=== PATIENT | female | born 2000 | race African-American/Black ===

== ENCOUNTER 2022-02-18 12:35 | Inpatient (IN) | payer OTHER ==
[2022-02-18] MEDS ORDERED: METOCLOPRAMIDE HCL INJECTION 10 MG/2 ML VIAL IVPUSH ONE (12:54)
[2022-02-18] MEDS ORDERED: SODIUM CHLORIDE 0.9% 500 ML INFUS.BAG IV ONE (13:07)
[2022-02-18] MEDS ORDERED: THIAMINE HCL 200 MG/2 ML VIAL IVPB ONE ×2 (13:09→13:49)
[2022-02-18] MEDS ORDERED: MULTIVIT INJ. ADULT COMBO WITH VIT K 1 COMBO 10 ML VIAL IV ONE (13:10)
[2022-02-18] MEDS ORDERED: THIAMINE HCL 100 MG TABLET (FP) PO ONE (13:10)
[2022-02-18] MEDS ORDERED: FOLIC ACID 5 MG/1 ML IVPB ONE (13:51)
[2022-02-18] MEDS ORDERED: METOCLOPRAMIDE HCL INJECTION 10 MG/2 ML VIAL ONE (13:55)
[2022-02-18 14:03] LABS: BASO % 1.1 % (0-2.0); EOS % 1.1 % (0-4.5); HEMATOCRIT 44.3 % (32.4-45.2); HEMOGLOBIN 14.9 GM/dL (10.7-15.3); LYMPH % 55.9 % (8-40); MCH 28.2 pg (25.7-33.7); MCHC 33.6 g/dl (32.0-36.0); MEAN PLT VOLUME 8.4 fl (7.5-11.1); MONO % 10.3 % (3.8-10.2); NEUT % 31.6 % (42.8-82.8); PLATELET COUNT 456 10^3/uL (134-434); RBC 5.28 M/mm3 (3.60-5.2); RDW 13.2 % (11.6-15.6); WHITE BLOOD COUNT 4.9 K/mm3 (4.0-10.0)
[2022-02-18 14:06] LABS: EPI CELLS >36 /uL (0-25.1); HYALINE CASTS 22 /uL (0-3.1); PH,URINE 5.5 (5.0-8.0); URINE APPEARANCE CLOUDY; URINE BACTERIA >9,000 /uL (0-1359); URINE BILIRUBIN NEGATIVE (NEGATIVE); URINE COLOR DK YELLOW; URINE GLUCOSE (UA) NEGATIVE (NEGATIVE); URINE KETONE 2+ (NEGATIVE); URINE LEUK ESTERASE 1+ (NEGATIVE); URINE NITRITE NEGATIVE (NEGATIVE); URINE PROTEIN 2+ (NEGATIVE); URINE RBC 15 /uL (0-23.9); URINE WBC 384 /uL (0-25.8)
[2022-02-18 14:21] LABS: COCAINE, UR NEGATIVE (NEGATIVE); OPIATES, URI NEGATIVE (NEGATIVE); URINE AMPHETAMINES NEGATIVE (NEGATIVE); URINE BARBITURATES NEGATIVE (NEGATIVE)
[2022-02-18 14:22] LABS: ALBUMIN 4.6 g/dl (3.4-5.0); CALCIUM 10.5 mg/dL (8.5-10.1)
[2022-02-18 14:23] LABS: MAGNESIUM 2.1 mg/dL (1.8-2.4)
[2022-02-18 14:24] LABS: METHADONE, UR NEGATIVE (NEGATIVE); PHENCYCLIDINE,URINE NEGATIVE (NEGATIVE); URINE BENZODIAZEPINES NEGATIVE (NEGATIVE)
[2022-02-18 14:25] LABS: PHOSPHOROUS 3.3 mg/dL (2.5-4.9)
[2022-02-18 14:27] LABS: BILIRUBIN,TOTAL 0.6 mg/dL (0.2-1); TOT PROT 8.6 g/dl (6.4-8.2)
[2022-02-18] MEDS ORDERED: THIAMINE HCL 200 MG/2 ML VIAL ONE (14:44)
[2022-02-18] MEDS ORDERED: CEFTRIAXONE 1,000 MG in DEXTROSE 5%-WATER - 50 ML IVPB ONE (14:49)
[2022-02-18] MEDS ORDERED: CEFTRIAXONE 1 GM/50 ML BAG ONE (16:17)
[2022-02-18] MEDS ORDERED: ONDANSETRON 4 MG/2 ML VIAL IVPUSH PRN (17:10)
[2022-02-18] MEDS: DEXTROSE 5%-0.45% SALINE 1,000 ML IV SCH (18:10)
[2022-02-18] MEDS ORDERED: CIPROFLOXACIN 250 MG TABLET (RESTRICTED TO ID) PO SCH (22:00)
[2022-02-19] MEDS: ENOXAPARIN NA (PORCINE) 30 MG/0.3 ML DISP.SYRIN SQ SCH (09:37)
[2022-02-19] MEDS ORDERED: ONDANSETRON 4 MG/2 ML VIAL IVPUSH PRN (09:46)
[2022-02-19 10:35] LABS: BASO % 0.7 % (0-2.0); EOS % 1.7 % (0-4.5); HEMATOCRIT 37.5 % (32.4-45.2); HEMOGLOBIN 12.6 GM/dL (10.7-15.3); LYMPH % 42.5 % (8-40); MCH 27.9 pg (25.7-33.7); MCHC 33.6 g/dl (32.0-36.0); MEAN CELL VOLUME 82.9 fl (80-96); MEAN PLT VOLUME 8.5 fl (7.5-11.1); MONO % 6.5 % (3.8-10.2); NEUT % 48.6 % (42.8-82.8); PLATELET COUNT 354 10^3/uL (134-434); RBC 4.53 M/mm3 (3.60-5.2); RDW 13.2 % (11.6-15.6); WHITE BLOOD COUNT 3.1 K/mm3 (4.0-10.0)
[2022-02-19 10:59] LABS: BLOOD UREA NITROGEN 3.8 mg/dL (7-18); MAGNESIUM 1.6 mg/dL (1.8-2.4)
[2022-02-19 11:02] LABS: BILIRUBIN,DIRECT 0.1 mg/dL (0.0-0.2); CREATININE 0.7 mg/dL (0.55-1.3)
[2022-02-19 11:03] LABS: BILIRUBIN,TOTAL 0.5 mg/dL (0.2-1)
[2022-02-19 11:04] LABS: TOT PROT 6.9 g/dl (6.4-8.2)
[2022-02-19 11:09] LABS: ALBUMIN 3.6 g/dl (3.4-5.0); CALCIUM 8.9 mg/dL (8.5-10.1)
[2022-02-19] MEDS ORDERED: MAGNESIUM OXIDE 400 MG TABLET (FP) PO ONE (16:41)
[2022-02-19] MEDS ORDERED: POTASSIUM CHLORIDE TABS 20 MEQ TABLET.ER (FP) PO ONE (16:41)
[2022-02-19] MEDS: DEXTROSE 5%-0.45% SALINE 1,000 ML IV SCH (17:26)
[2022-02-19] MEDS: AMINO ACIDS/PROTEIN HYDROLYS 30 ML LIQUID.PKT PO SCH (17:26)
[2022-02-19] MEDS: THIAMINE HCL 100 MG TABLET (FP) PO SCH (21:18)
[2022-02-19] MEDS ORDERED: CIPROFLOXACIN 250 MG TABLET (RESTRICTED TO ID) PO SCH (22:00)
[2022-02-20] MEDS: DEXTROSE 5%-0.45% SALINE 1,000 ML IV SCH (06:26)
[2022-02-20 07:48] LABS: EOS % 3.2 % (0-4.5); HEMATOCRIT 36.2 % (32.4-45.2); HEMOGLOBIN 12.2 GM/dL (10.7-15.3); LYMPH % 57.4 % (8-40); MCH 27.6 pg (25.7-33.7); MCHC 33.6 g/dl (32.0-36.0); MEAN CELL VOLUME 82.3 fl (80-96); MEAN PLT VOLUME 8.2 fl (7.5-11.1); MONO % 9.6 % (3.8-10.2); NEUT % 28.8 % (42.8-82.8); PLATELET COUNT 332 10^3/uL (134-434); RDW 13.2 % (11.6-15.6); WHITE BLOOD COUNT 3.6 K/mm3 (4.0-10.0)
[2022-02-20 08:13] LABS: CALCIUM 9.1 mg/dL (8.5-10.1)
[2022-02-20 08:14] LABS: ALBUMIN 3.5 g/dl (3.4-5.0); BLOOD UREA NITROGEN 3.4 mg/dL (7-18)
[2022-02-20 08:30] LABS: BILIRUBIN,TOTAL 0.5 mg/dL (0.2-1); CREATININE 0.8 mg/dL (0.55-1.3); TOT PROT 6.4 g/dl (6.4-8.2)
[2022-02-20 10:10] LABS: PHOSPHOROUS 4.4 mg/dL (2.5-4.9)
[2022-02-20] MEDS: MULTIVITAMINS (DAILY MVI) TABLET (FP) PO SCH (11:03)
[2022-02-20] MEDS: CEFTRIAXONE 1 GM in DEXTROSE 5%-WATER - 50 ML IVPB SCH (11:03)
[2022-02-20] MEDS: AMINO ACIDS/PROTEIN HYDROLYS 30 ML LIQUID.PKT PO SCH ×2 (11:03→18:22)
[2022-02-20] MEDS: FOLIC ACID 1 MG TABLET (FP) PO SCH (11:03)
[2022-02-20] MEDS: ENOXAPARIN NA (PORCINE) 30 MG/0.3 ML DISP.SYRIN SQ SCH (11:04)
[2022-02-20] MEDS: AMINO ACIDS 4.25%/D5W 1,000 ML IV SCH ×2 (11:04→22:42)
[2022-02-20 13:08] VITALS: BMI 15.3
[2022-02-20] MEDS: THIAMINE HCL 100 MG TABLET (FP) PO SCH (22:42)
[2022-02-21] MEDS: AMINO ACIDS 4.25%/D5W 1,000 ML IV SCH ×2 (03:53→16:20)
[2022-02-21 08:40] LABS: HEMATOCRIT 34.9 % (32.4-45.2); MCH 28.3 pg (25.7-33.7); MCHC 34.4 g/dl (32.0-36.0); MEAN CELL VOLUME 82.3 fl (80-96); MEAN PLT VOLUME 8.4 fl (7.5-11.1); PLATELET COUNT 288 10^3/uL (134-434); RBC 4.24 M/mm3 (3.60-5.2); RDW 12.9 % (11.6-15.6); WHITE BLOOD COUNT 3.3 K/mm3 (4.0-10.0)
[2022-02-21 09:01] LABS: CALCIUM 8.8 mg/dL (8.5-10.1)
[2022-02-21 09:02] LABS: ALBUMIN 3.2 g/dl (3.4-5.0); BLOOD UREA NITROGEN 12.3 mg/dL (7-18)
[2022-02-21 09:03] LABS: CREATININE 0.6 mg/dL (0.55-1.3)
[2022-02-21 09:05] LABS: BILIRUBIN,TOTAL 0.3 mg/dL (0.2-1)
[2022-02-21] MEDS: ENOXAPARIN NA (PORCINE) 30 MG/0.3 ML DISP.SYRIN SQ SCH (09:30)
[2022-02-21] MEDS: CEFTRIAXONE 1 GM in DEXTROSE 5%-WATER - 50 ML IVPB SCH (09:30)
[2022-02-21] MEDS: MULTIVITAMINS (DAILY MVI) TABLET (FP) PO SCH (09:31)
[2022-02-21] MEDS: AMINO ACIDS/PROTEIN HYDROLYS 30 ML LIQUID.PKT PO SCH (09:31)
[2022-02-21] MEDS: FOLIC ACID 1 MG TABLET (FP) PO SCH (09:31)
[2022-02-21 10:27] LABS: ANISOCYTOSIS 0; HELMET CELLS 0; HOWELL-JOLLY BODIES 0; MACROCYTOSIS 0; OVALOCYTE 0; ROULEAU 0; SICKELED CELLS 0; TARGET CELLS 0; TEAR DROP CELLS 0; TOXIC GRANULATION 0
[2022-02-21 19:37] VITALS: BP 115/76; PULSE 84; RESP 18; TEMP 98.1
[2022-02-21] MEDS ORDERED: CEFUROXIME AXETIL 250 MG TABLET PO SCH (22:00)
== END 2022-02-21 18:22 | disposition home or self-care (01) | DRG 394 ==
LOC: JER 12:35 → JERBED 14:51 → J7W 22:37
PROVIDERS: ADMIT Internal Medicine; ATTEND Nurse Practitioner Family
DX: K55.1 Chronic vascular disorders of intestine (principal); E46 Unspecified protein-calorie malnutrition; R64 Cachexia; Z68.1 Body mass index [BMI] 19.9 or less, adult; E86.0 Dehydration; F12.10 Cannabis abuse, uncomplicated; D72.819 Decreased white blood cell count, unspecified; R11.2 Nausea with vomiting, unspecified
CPT/HCPCS: 36415; 74174-TC; 74177-TC; 80048; 80053; 80076; 80307; 81003; 82607; 83036; 83690; 83735; 84100; 84443; 84703; 85025; 86705; 86708; 86803; 87086; 87340; 87517; 93005; 93010; 99285-25; C9803-CS; Q9967; U0003; U0005

== ENCOUNTER 2023-08-04 16:12 | Emergency (ER) | payer OTHER ==
[2023-08-04 16:25] VITALS: BP 134/99; PULSE 97; RESP 18; TEMP 98.7; BMI 21.0
[2023-08-04 17:37] LABS: HCG,QUALITATIVE URINE Negative
[2023-08-04 17:39] LABS: EPI CELLS >36 /uL (0-25.1); HYALINE CASTS 6 /uL (0-3.1); PH,URINE 6.5 (5.0-8.0); URINE APPEARANCE CLOUDY; URINE BACTERIA 1512 /uL (0-1359); URINE BILIRUBIN NEGATIVE (NEGATIVE); URINE COLOR YELLOW; URINE GLUCOSE (UA) NEGATIVE (NEGATIVE); URINE KETONE 3+ (NEGATIVE); URINE LEUK ESTERASE TRACE (NEGATIVE); URINE NITRITE NEGATIVE (NEGATIVE); URINE PROTEIN TRACE (NEGATIVE); URINE WBC 45 /uL (0-25.8)
[2023-08-04] MEDS ORDERED: HALOPERIDOL LACTATE 5 MG/ML IM ONE (17:41)
[2023-08-04] MEDS ORDERED: HALOPERIDOL LACTATE 5 MG/ML ONE (17:44)
[2023-08-04 20:52] LABS: URINE RBC 52.5 /uL (0-23.9)
== END 2023-08-04 19:02 | disposition home or self-care (01) ==
LOC: JER 16:12
PROC: 3E023GC Introduction of Other Therapeutic Substance into Muscle, Percutaneous Approach (ICD-10-PCS; principal; 2023-08-04)
DX: R11.2 Nausea with vomiting, unspecified (principal)
CPT/HCPCS: 81003; 84703; 99284-25

== ENCOUNTER 2023-08-05 18:05 | Observation (INO) | payer OTHER ==
[2023-08-05] MEDS ORDERED: SODIUM CHLORIDE 0.9% 500 ML INFUS.BAG IV ONE ×2 (19:13→20:38)
[2023-08-05] MEDS ORDERED: ONDANSETRON 4 MG/2 ML VIAL IVPUSH ONE (19:13)
[2023-08-05] MEDS ORDERED: LACTATED RINGERS SOLUTION 1,000 ML/1,000 ML INFUS.BAG IV STA (19:16)
[2023-08-05] MEDS ORDERED: ONDANSETRON 4 MG/2 ML VIAL ONE (19:41)
[2023-08-05] MEDS ORDERED: LORazepam 2 MG/ML SDV VIAL IVPUSH ONE (20:01)
[2023-08-05 20:17] LABS: BASO % 0.9 % (0-2.0); EOS % 0.2 % (0-4.5); HEMATOCRIT 42.7 % (32.4-45.2); HEMOGLOBIN 13.9 GM/dL (10.7-15.3); LYMPH % 34.6 % (8-40); MCHC 32.7 g/dl (32.0-36.0); MEAN CELL VOLUME 82.8 fl (80-96); MEAN PLT VOLUME 8.1 fl (7.5-11.1); MONO % 7.2 % (3.8-10.2); NEUT % 57.1 % (42.8-82.8); PLATELET COUNT 631 10^3/uL (134-434); RBC 5.16 M/mm3 (3.60-5.2); RDW 14.1 % (11.6-15.6); WHITE BLOOD COUNT 7.8 K/mm3 (4.0-10.0)
[2023-08-05 20:47] LABS: POTASSIUM 3.7 mmol/L (3.5-5.1)
[2023-08-05 20:49] LABS: ALBUMIN 4.6 g/dl (3.4-5.0); CALCIUM 10.3 mg/dL (8.5-10.1); MAGNESIUM 2.2 mg/dL (1.8-2.4)
[2023-08-05 20:52] LABS: PHOSPHOROUS 2.3 mg/dL (2.5-4.9)
[2023-08-05 20:54] LABS: BILIRUBIN,TOTAL 0.5 mg/dL (0.2-1); TOT PROT 8.7 g/dl (6.4-8.2)
[2023-08-05 21:20] LABS: VENOUS BASE EXCESS 0.2 mmol/L (-2-2); VENOUS O2 SATURATION 67.6 % (70-80); VENOUS PCO2 45.4 mmHg (38-52); VENOUS PH 7.373 (7.310-7.410)
[2023-08-05 21:25] LABS: INR 1.22 (0.83-1.09); PROTHROMBIN TIME (PATIENT) 14.1 SEC (9.7-13.0)
[2023-08-05 21:28] LABS: ACTIVATED PTT 26.1 SECONDS (25.2-36.5)
[2023-08-05] MEDS ORDERED: LACTATED RINGERS SOLUTION 1000 ML INFUS.BAG IV ONE (23:18)
[2023-08-06 00:33] LABS: COCAINE, UR NEGATIVE (NEGATIVE); METHADONE, UR NEGATIVE (NEGATIVE); OPIATES, URI NEGATIVE (NEGATIVE); PHENCYCLIDINE,URINE NEGATIVE (NEGATIVE); URINE AMPHETAMINES NEGATIVE (NEGATIVE); URINE BARBITURATES NEGATIVE (NEGATIVE); URINE BENZODIAZEPINES NEGATIVE (NEGATIVE)
[2023-08-06 00:37] LABS: PH,URINE 8.5 (5.0-8.0); URINE APPEARANCE CLEAR; URINE BILIRUBIN NEGATIVE (NEGATIVE); URINE COLOR YELLOW; URINE GLUCOSE (UA) NEGATIVE (NEGATIVE); URINE KETONE TRACE (NEGATIVE); URINE LEUK ESTERASE NEGATIVE (NEGATIVE); URINE NITRITE NEGATIVE (NEGATIVE); URINE PROTEIN NEGATIVE (NEGATIVE)
[2023-08-06 01:05] LABS: LACTIC ACID 2.4 mmol/L (0.4-2.0)
[2023-08-06] MEDS: DEXTROSE 5%-NORMAL SALINE 1,000 ML IV SCH ×2 (03:31→21:29)
[2023-08-06] MEDS ORDERED: ONDANSETRON 4 MG/2 ML VIAL IVPUSH PRN (03:35)
[2023-08-06 06:53] LABS: BASO % 1.1 % (0-2.0); EOS % 0.5 % (0-4.5); HEMATOCRIT 33.4 % (32.4-45.2); HEMOGLOBIN 10.8 GM/dL (10.7-15.3); LYMPH % 50.6 % (8-40); MCH 26.8 pg (25.7-33.7); MCHC 32.4 g/dl (32.0-36.0); MEAN CELL VOLUME 82.6 fl (80-96); MEAN PLT VOLUME 7.6 fl (7.5-11.1); MONO % 10.4 % (3.8-10.2); NEUT % 37.4 % (42.8-82.8); PLATELET COUNT 431 10^3/uL (134-434); RBC 4.04 M/mm3 (3.60-5.2); RDW 14.1 % (11.6-15.6); WHITE BLOOD COUNT 5.9 K/mm3 (4.0-10.0)
[2023-08-06 07:08] LABS: POTASSIUM 3.9 mmol/L (3.5-5.1)
[2023-08-06 07:11] LABS: BLOOD UREA NITROGEN 4.5 mg/dL (7-18)
[2023-08-06 07:14] LABS: CREATININE 0.8 mg/dL (0.55-1.3)
[2023-08-06 23:05] VITALS: BMI 17.9
[2023-08-07 06:31] VITALS: RESP 18
[2023-08-07] MEDS: DEXTROSE 5%-NORMAL SALINE 1,000 ML IV SCH (09:55)
[2023-08-07 14:42] VITALS: BP 118/86; PULSE 97; TEMP 98.4
== END 2023-08-07 15:38 | disposition home or self-care (01) ==
LOC: JER 18:05 → JERBED 08-06 00:12 → J4W 08-06 20:41
PROVIDERS: ADMIT Internal Medicine; ATTEND Internal Medicine
PROC: 3E033NZ Introduction of Analgesics, Hypnotics, Sedatives into Peripheral Vein, Percutaneous Approach (ICD-10-PCS; principal; 2023-08-06)
PROC: 3E033GC Introduction of Other Therapeutic Substance into Peripheral Vein, Percutaneous Approach (ICD-10-PCS; 2023-08-06)
PROC: 3E0337Z Introduction of Electrolytic and Water Balance Substance into Peripheral Vein, Percutaneous Approach (ICD-10-PCS; 2023-08-06)
DX: F12.90 Cannabis use, unspecified, uncomplicated (principal); E86.0 Dehydration; E46 Unspecified protein-calorie malnutrition; R11.2 Nausea with vomiting, unspecified; G12.9 Spinal muscular atrophy, unspecified; Z86.16 Personal history of COVID-19; K55.1 Chronic vascular disorders of intestine; Z87.440 Personal history of urinary (tract) infections
CPT/HCPCS: 0241U-QW; 36415; 71045-TC-FY; 74175-TC; 76705-TC; 76856-TC; 80048; 80053; 80307; 81003; 82803; 83605; 83735; 84100; 84439; 84443; 84484; 84703; 85025; 85610; 85730; 86850; 86900; 86901; 87086; 93005; 93010; 96361; 96374; 96375; 99285-25; G0378; Q9967

== ENCOUNTER 2024-01-16 13:57 | Emergency (ER) | payer OTHER ==
[2024-01-16 14:13] VITALS: BP 127/73; PULSE 92; RESP 18; TEMP 98.1; BMI 19.2
[2024-01-16] MEDS ORDERED: ONDANSETRON 4 MG/2 ML VIAL ONE (15:09)
[2024-01-16 15:20] LABS: BASO % 0.5 % (0-2.0); HEMATOCRIT 38.1 % (32.4-45.2); HEMOGLOBIN 12.7 GM/dL (10.7-15.3); LYMPH % 13.8 % (8-40); MCH 26.8 pg (25.7-33.7); MCHC 33.4 g/dl (32.0-36.0); MEAN CELL VOLUME 80.2 fl (80-96); MONO % 7.3 % (3.8-10.2); NEUT % 78.4 % (42.8-82.8); PLATELET COUNT 409 10^3/uL (134-434); RBC 4.75 M/mm3 (3.60-5.2); RDW 15.5 % (11.6-15.6); WHITE BLOOD COUNT 14.4 K/mm3 (4.0-10.0)
[2024-01-16] MEDS: SODIUM CHLORIDE 0.9% 1000 ML INFUS.BAG IV ONE (15:23)
[2024-01-16] MEDS: ONDANSETRON 4 MG/2 ML VIAL IVPUSH ONE (15:23)
[2024-01-16 15:40] LABS: POTASSIUM 3.4 mmol/L (3.5-5.1)
[2024-01-16 15:42] LABS: CALCIUM 10.2 mg/dL (8.5-10.1)
[2024-01-16 15:43] LABS: ALBUMIN 4.9 g/dl (3.4-5.0); BLOOD UREA NITROGEN 13.3 mg/dL (7-18)
[2024-01-16 15:44] LABS: CREATININE 0.9 mg/dL (0.55-1.3)
[2024-01-16 15:47] LABS: BILIRUBIN,TOTAL 0.7 mg/dL (0.2-1); TOT PROT 9.6 g/dl (6.4-8.2)
[2024-01-16 16:59] LABS: HCG,QUALITATIVE URINE Negative
[2024-01-16 17:00] LABS: EPI CELLS >36 /uL (0-25.1); HYALINE CASTS 1 /uL (0-3.1); URINE APPEARANCE CLEAR; URINE BACTERIA 1310 /uL (0-1359); URINE BILIRUBIN NEGATIVE (NEGATIVE); URINE COLOR YELLOW; URINE GLUCOSE (UA) NEGATIVE (NEGATIVE); URINE KETONE 3+ (NEGATIVE); URINE LEUK ESTERASE NEGATIVE (NEGATIVE); URINE NITRITE NEGATIVE (NEGATIVE); URINE PROTEIN 1+ (NEGATIVE); URINE WBC 46 /uL (0-25.8)
[2024-01-16] MEDS ORDERED: HALOPERIDOL LACTATE 5 MG/ML ONE (18:09)
[2024-01-16] MEDS: HALOPERIDOL LACTATE 5 MG/ML IM ONE (18:20)
[2024-01-16 20:21] LABS: URINE RBC 369.7 /uL (0-23.9)
[2024-01-16 20:22] LABS: YEAST NONE SEEN (NEGATIVE)
== END 2024-01-16 21:12 | disposition home or self-care (01) ==
LOC: JER 13:57
PROC: 3E033GC Introduction of Other Therapeutic Substance into Peripheral Vein, Percutaneous Approach (ICD-10-PCS; principal; 2024-01-16)
PROC: 3E023GC Introduction of Other Therapeutic Substance into Muscle, Percutaneous Approach (ICD-10-PCS; 2024-01-16)
DX: R11.2 Nausea with vomiting, unspecified (principal); F12.10 Cannabis abuse, uncomplicated; R10.30 Lower abdominal pain, unspecified
CPT/HCPCS: 36415; 74177-TC; 80053; 81003; 83690; 84703; 85025; 87086; 99285-25

== ENCOUNTER 2024-01-17 09:11 | Emergency (ER) | payer BC ==
[2024-01-17 09:34] VITALS: BP 145/71; PULSE 78; RESP 18; TEMP 98.4; BMI 19.2
[2024-01-17] MEDS ORDERED: HALOPERIDOL LACTATE 5 MG/ML ONE (09:40)
[2024-01-17] MEDS: HALOPERIDOL LACTATE 5 MG/ML IVPUSH ONE (09:50)
[2024-01-17 10:07] LABS: BASO % 0.6 % (0-2.0); EOS % 0.1 % (0-4.5); HEMATOCRIT 37.7 % (32.4-45.2); HEMOGLOBIN 12.7 GM/dL (10.7-15.3); LYMPH % 18.2 % (8-40); MCHC 33.7 g/dl (32.0-36.0); MEAN CELL VOLUME 80.1 fl (80-96); MEAN PLT VOLUME 8.5 fl (7.5-11.1); MONO % 6.1 % (3.8-10.2); PLATELET COUNT 380 10^3/uL (134-434); RBC 4.71 M/mm3 (3.60-5.2); RDW 15.2 % (11.6-15.6); WHITE BLOOD COUNT 11.5 K/mm3 (4.0-10.0)
[2024-01-17] MEDS: SODIUM CHLORIDE 0.9% 500 ML INFUS.BAG IV SCH (10:14)
[2024-01-17 10:45] LABS: POTASSIUM 3.2 mmol/L (3.5-5.1)
[2024-01-17 10:49] LABS: ALBUMIN 4.7 g/dl (3.4-5.0); CALCIUM 10.2 mg/dL (8.5-10.1)
[2024-01-17 10:54] LABS: BILIRUBIN,TOTAL 0.8 mg/dL (0.2-1); TOT PROT 8.9 g/dl (6.4-8.2)
[2024-01-17] MEDS ORDERED: METOCLOPRAMIDE HCL INJECTION 10 MG/2 ML VIAL ONE (11:15)
[2024-01-17] MEDS: METOCLOPRAMIDE HCL INJECTION 10 MG/2 ML VIAL IVPB ONE (11:20)
[2024-01-17] MEDS ORDERED: LIDOCAINE VISCOUS 2% ORAL/TOP 15 ML UNIT-DOSE CUP ONE (12:28)
[2024-01-17] MEDS ORDERED: SUCRALFATE 1 GM TABLET (FP) ONE (12:28)
[2024-01-17] MEDS ORDERED: MAG HYDROX/AL HYDROX/SIMETH 30 ML UNIT-DOSE CUP ONE (12:28)
[2024-01-17] MEDS ORDERED: POTASSIUM CHLORIDE TABS 20 MEQ TABLET.ER (FP) PO ONE (12:28)
[2024-01-17] MEDS: POTASSIUM CHLORIDE TABS 20 MEQ TABLET.ER (FP) PO ONE (12:39)
[2024-01-17] MEDS: MAG HYDROX/AL HYDROX/SIMETH 30 ML UNIT-DOSE CUP PO ONE (12:39)
[2024-01-17] MEDS: LIDOCAINE VISCOUS 2% ORAL/TOP 15 ML UNIT-DOSE CUP MM ONE (12:39)
[2024-01-17] MEDS: SUCRALFATE 1 GM/10 ML UNIT DOSE CUPS PO SCH (12:40)
[2024-01-17] MEDS ORDERED: POTASSIUM CHLORIDE ORAL LIQUID 20 MEQ/15 ML ONE (12:42)
[2024-01-17] MEDS: POTASSIUM CHLORIDE ORAL LIQUID 20 MEQ/15 ML PO ONE (12:48)
== END 2024-01-17 13:15 | disposition home or self-care (01) ==
LOC: JER 09:11
PROC: 3E033GC Introduction of Other Therapeutic Substance into Peripheral Vein, Percutaneous Approach (ICD-10-PCS; principal; 2024-01-17)
PROC: 3E033GC Introduction of Other Therapeutic Substance into Peripheral Vein, Percutaneous Approach (ICD-10-PCS; 2024-01-17)
PROC: 3E033GC Introduction of Other Therapeutic Substance into Peripheral Vein, Percutaneous Approach (ICD-10-PCS; 2024-01-17)
DX: F12.988 Cannabis use, unspecified with other cannabis-induced disorder (principal); R11.2 Nausea with vomiting, unspecified; R10.13 Epigastric pain
CPT/HCPCS: 36415; 80053; 83690; 85025; 99284-25

== ENCOUNTER 2024-01-22 13:20 | Emergency (ER) | payer BC ==
[2024-01-22 13:25] VITALS: BP 120/83; PULSE 110; RESP 18; TEMP 98; BMI 18.3
[2024-01-22] MEDS: METOCLOPRAMIDE HCL INJECTION 10 MG/2 ML VIAL IVPB ONE (14:25)
[2024-01-22] MEDS ORDERED: FAMOTIDINE 20 MG/50 ML IVPB 20 MG/50 ML MG IVPB ONE (14:29)
[2024-01-22] MEDS ORDERED: HALOPERIDOL LACTATE 5 MG/ML ONE (14:30)
[2024-01-22] MEDS: HALOPERIDOL LACTATE 5 MG/ML IM ONE (15:03)
[2024-01-22] MEDS: FAMOTIDINE 20 MG/50 ML IVPB 20 MG/50 ML MG IVPB ONE (15:03)
[2024-01-22] MEDS: SODIUM CHLORIDE 1,000 ML IV STA (15:03)
[2024-01-22 15:11] LABS: BASO % 1.2 % (0-2.0); EOS % 0.4 % (0-4.5); HEMOGLOBIN 13.2 GM/dL (10.7-15.3); LYMPH % 39.3 % (8-40); MCH 27.2 pg (25.7-33.7); MCHC 33.9 g/dl (32.0-36.0); MEAN CELL VOLUME 80.1 fl (80-96); MEAN PLT VOLUME 8.1 fl (7.5-11.1); MONO % 8.2 % (3.8-10.2); NEUT % 50.9 % (42.8-82.8); PLATELET COUNT 443 10^3/uL (134-434); RBC 4.87 M/mm3 (3.60-5.2); RDW 15.2 % (11.6-15.6); WHITE BLOOD COUNT 7.1 K/mm3 (4.0-10.0)
[2024-01-22 15:32] LABS: POTASSIUM 3.3 mmol/L (3.5-5.1)
[2024-01-22 15:35] LABS: ALBUMIN 4.9 g/dl (3.4-5.0); BLOOD UREA NITROGEN 12.9 mg/dL (7-18); CALCIUM 10.3 mg/dL (8.5-10.1)
[2024-01-22 15:39] LABS: EPI CELLS >36 /uL (0-25.1); HYALINE CASTS 4 /uL (0-3.1); URINE APPEARANCE CLEAR; URINE BACTERIA 501 /uL (0-1359); URINE BILIRUBIN NEGATIVE (NEGATIVE); URINE COLOR DK YELLOW; URINE GLUCOSE (UA) NEGATIVE (NEGATIVE); URINE KETONE 2+ (NEGATIVE); URINE LEUK ESTERASE NEGATIVE (NEGATIVE); URINE NITRITE NEGATIVE (NEGATIVE); URINE PROTEIN 1+ (NEGATIVE); URINE WBC 27 /uL (0-25.8)
[2024-01-22 15:39] LABS: BILIRUBIN,TOTAL 0.7 mg/dL (0.2-1); TOT PROT 8.6 g/dl (6.4-8.2)
[2024-01-22 15:40] LABS: HCG,QUALITATIVE URINE Negative
[2024-01-22 15:49] LABS: URINE RBC 56 /uL (0-23.9)
[2024-01-22] MEDS ORDERED: POTASSIUM CHLORIDE ORAL LIQUID 20 MEQ/15 ML ONE (15:55)
[2024-01-22] MEDS: POTASSIUM CHLORIDE ORAL LIQUID 20 MEQ/15 ML PO ONE (16:01)
== END 2024-01-22 17:13 | disposition home or self-care (01) ==
LOC: JER 13:20
PROC: 3E033GC Introduction of Other Therapeutic Substance into Peripheral Vein, Percutaneous Approach (ICD-10-PCS; principal; 2024-01-22)
PROC: 3E023GC Introduction of Other Therapeutic Substance into Muscle, Percutaneous Approach (ICD-10-PCS; 2024-01-22)
DX: E87.6 Hypokalemia (principal); F12.988 Cannabis use, unspecified with other cannabis-induced disorder; R11.2 Nausea with vomiting, unspecified; N30.90 Cystitis, unspecified without hematuria; R10.13 Epigastric pain
CPT/HCPCS: 36415; 80053; 81003; 83690; 84703; 85025; 93005; 93010; 99284-25

== ENCOUNTER 2024-01-24 09:28 | Emergency (ER) | payer BC ==
[2024-01-24 09:35] VITALS: RESP 18; BMI 18.3
[2024-01-24] MEDS ORDERED: HALOPERIDOL LACTATE 5 MG/ML ONE (10:02)
[2024-01-24] MEDS ORDERED: KETOROLAC TROMETHAMINE 30 MG/1 ML VIAL ONE (10:02)
[2024-01-24] MEDS ORDERED: FAMOTIDINE 20 MG/50 ML IVPB 20 MG/50 ML MG IVPB ONE (10:02)
[2024-01-24] MEDS: FAMOTIDINE 20 MG/50 ML IVPB 20 MG/50 ML MG IVPB ONE (10:29)
[2024-01-24] MEDS: HALOPERIDOL LACTATE 5 MG/ML IM ONE (10:29)
[2024-01-24] MEDS: KETOROLAC TROMETHAMINE 30 MG/1 ML VIAL IVPUSH ONE (10:29)
[2024-01-24 10:52] LABS: BASO % 0.7 % (0-2.0); EOS % 0.1 % (0-4.5); HEMATOCRIT 36.1 % (32.4-45.2); HEMOGLOBIN 11.9 GM/dL (10.7-15.3); LYMPH % 28.3 % (8-40); MCHC 32.9 g/dl (32.0-36.0); MEAN CELL VOLUME 81.9 fl (80-96); MEAN PLT VOLUME 7.9 fl (7.5-11.1); MONO % 4.3 % (3.8-10.2); NEUT % 66.6 % (42.8-82.8); PLATELET COUNT 354 10^3/uL (134-434); RBC 4.41 M/mm3 (3.60-5.2); RDW 14.6 % (11.6-15.6); WHITE BLOOD COUNT 5.2 K/mm3 (4.0-10.0)
[2024-01-24 11:10] LABS: POTASSIUM 3.4 mmol/L (3.5-5.1)
[2024-01-24 11:12] LABS: CALCIUM 9.3 mg/dL (8.5-10.1)
[2024-01-24 11:13] LABS: ALBUMIN 4.2 g/dl (3.4-5.0); BLOOD UREA NITROGEN 8.3 mg/dL (7-18)
[2024-01-24 11:16] LABS: CREATININE 0.9 mg/dL (0.55-1.3)
[2024-01-24 11:17] LABS: BILIRUBIN,TOTAL 0.8 mg/dL (0.2-1)
[2024-01-24 11:19] LABS: TOT PROT 7.8 g/dl (6.4-8.2)
[2024-01-24] MEDS: SODIUM CHLORIDE 0.9% 500 ML INFUS.BAG IV ONE (11:39)
[2024-01-24 12:18] LABS: EPI CELLS >36 /uL (0-25.1); HYALINE CASTS 2 /uL (0-3.1); PH,URINE 7.5 (5.0-8.0); URINE APPEARANCE CLOUDY; URINE BACTERIA 692 /uL (0-1359); URINE BILIRUBIN NEGATIVE (NEGATIVE); URINE COLOR YELLOW; URINE GLUCOSE (UA) NEGATIVE (NEGATIVE); URINE KETONE 3+ (NEGATIVE); URINE LEUK ESTERASE NEGATIVE (NEGATIVE); URINE NITRITE NEGATIVE (NEGATIVE); URINE PROTEIN TRACE (NEGATIVE); URINE WBC 21 /uL (0-25.8)
[2024-01-24 12:19] LABS: HCG,QUALITATIVE URINE Negative
[2024-01-24 12:50] LABS: URINE RBC 42 /uL (0-23.9)
[2024-01-24 14:14] VITALS: BP 117/73; PULSE 91; TEMP 98
== END 2024-01-24 14:21 | disposition home or self-care (01) ==
LOC: JER 09:28
PROC: 3E033GC Introduction of Other Therapeutic Substance into Peripheral Vein, Percutaneous Approach (ICD-10-PCS; principal; 2024-01-24)
PROC: 3E0333Z Introduction of Anti-inflammatory into Peripheral Vein, Percutaneous Approach (ICD-10-PCS; 2024-01-24)
PROC: 3E023GC Introduction of Other Therapeutic Substance into Muscle, Percutaneous Approach (ICD-10-PCS; 2024-01-24)
DX: F12.188 Cannabis abuse with other cannabis-induced disorder (principal); R11.15 Cyclical vomiting syndrome unrelated to migraine
CPT/HCPCS: 36415; 80053; 81003; 84703; 85025; 93005; 93010; 99284-25

== ENCOUNTER 2024-02-01 17:14 | Emergency (ER) | payer BC ==
[2024-02-01] MEDS ORDERED: ACETAMINOPHEN INJECTION 100 ML IVPB ONE (17:50)
[2024-02-01 17:54] LABS: BASO % 0.6 % (0-2.0); EOS % 0.8 % (0-4.5); HEMATOCRIT 42.4 % (32.4-45.2); HEMOGLOBIN 14.3 GM/dL (10.7-15.3); MCH 27.3 pg (25.7-33.7); MCHC 33.8 g/dl (32.0-36.0); MEAN CELL VOLUME 80.8 fl (80-96); MEAN PLT VOLUME 8.3 fl (7.5-11.1); NEUT % 44.6 % (42.8-82.8); PLATELET COUNT 447 10^3/uL (134-434); RBC 5.25 M/mm3 (3.60-5.2); RDW 15.4 % (11.6-15.6); WHITE BLOOD COUNT 7.3 K/mm3 (4.0-10.0)
[2024-02-01] MEDS: SODIUM CHLORIDE 0.9% 500 ML INFUS.BAG IV ONE (17:57)
[2024-02-01] MEDS: ACETAMINOPHEN 1000 MG/100 ML BAG IVPB ONE (17:57)
[2024-02-01 18:01] VITALS: BMI 17.5
[2024-02-01 18:07] LABS: VENOUS BASE EXCESS -0.1 mmol/L (-2-2); VENOUS O2 SATURATION 79.5 % (70-80); VENOUS PCO2 19.4 mmHg (38-52); VENOUS PH 7.6 (7.310-7.410)
[2024-02-01 18:09] LABS: INR 1.15 (0.83-1.09); PROTHROMBIN TIME (PATIENT) 12.9 SEC (9.7-13.0)
[2024-02-01 18:11] LABS: ACTIVATED PTT 26.1 SECONDS (25.2-36.5)
[2024-02-01 18:20] LABS: CHLORIDE 99 mmol/L (98-107); SODIUM 133 mmol/L (136-145)
[2024-02-01 18:21] LABS: POTASSIUM 6.4 mmol/L (3.5-5.1)
[2024-02-01 18:22] LABS: CALCIUM 9.7 mg/dL (8.5-10.1)
[2024-02-01 18:23] LABS: ALBUMIN 4.4 g/dl (3.4-5.0); ANION GAP 14 mmol/L (4-13); BLOOD UREA NITROGEN 12.8 mg/dL (7-18); CO2 20 mmol/L (21-32); GLUCOSE,RANDOM 116 mg/dL (74-106); MAGNESIUM 1.9 mg/dL (1.8-2.4)
[2024-02-01 18:26] LABS: CREATININE 1.1 mg/dL (0.55-1.3); SGOT/AST 35 U/L (15-37); SGPT/ALT 22 U/L (13-61)
[2024-02-01 18:28] LABS: BILIRUBIN,TOTAL 0.7 mg/dL (0.2-1); TOT PROT 8.3 g/dl (6.4-8.2)
[2024-02-01 18:29] LABS: ALK PHOS 102 U/L (45-117)
[2024-02-01] MEDS ORDERED: ONDANSETRON 4 MG/2 ML VIAL ONE (19:08)
[2024-02-01] MEDS: ONDANSETRON 4 MG/2 ML VIAL IVPUSH ONE (19:12)
[2024-02-01] MEDS: LORazepam 2 MG/ML SDV VIAL IVPUSH ONE (19:12)
[2024-02-01 20:09] LABS: POTASSIUM 3.7 mmol/L (3.5-5.1)
[2024-02-01 20:11] LABS: BLOOD UREA NITROGEN 11.3 mg/dL (7-18); CALCIUM 8.9 mg/dL (8.5-10.1)
[2024-02-01 20:15] LABS: CREATININE 0.8 mg/dL (0.55-1.3)
[2024-02-01] MEDS: LACTATED RINGERS SOLUTION 1000 ML INFUS.BAG IV ONE (20:45)
[2024-02-01] MEDS: SODIUM CHLORIDE 1,000 ML IV STA (23:10)
[2024-02-02 00:30] VITALS: BP 156/119; PULSE 106; RESP 13; TEMP 98.4
== END 2024-02-02 00:38 | disposition home or self-care (01) ==
LOC: JER 17:14
PROC: 3E033NZ Introduction of Analgesics, Hypnotics, Sedatives into Peripheral Vein, Percutaneous Approach (ICD-10-PCS; principal; 2024-02-01)
PROC: 3E033GC Introduction of Other Therapeutic Substance into Peripheral Vein, Percutaneous Approach (ICD-10-PCS; 2024-02-01)
PROC: 3E033GC Introduction of Other Therapeutic Substance into Peripheral Vein, Percutaneous Approach (ICD-10-PCS; 2024-02-01)
PROC: 3E0337Z Introduction of Electrolytic and Water Balance Substance into Peripheral Vein, Percutaneous Approach (ICD-10-PCS; 2024-02-01)
DX: E86.0 Dehydration (principal); R07.81 Pleurodynia; R11.2 Nausea with vomiting, unspecified
CPT/HCPCS: 0241U-QW; 36415; 71045-TC-FY; 80048; 80053; 82803; 83735; 84443; 84484; 84703; 85025; 85379; 85610; 85730; 93005; 93010; 99285-25; J0131